=== PATIENT | male | born 1945 | race Caucasian/White ===

== ENCOUNTER 2019-12-03 00:04 | Outpatient (CLI) | payer MEDICARE, OTHER, SELFPAY ==
[2019-12-03 16:41] LABS: SARS-CoV-2 RNA PCR Negative
== END 2019-12-03 00:05 | disposition home or self-care (01) ==
LOC: ANHCOVIDDT 00:04
PROVIDERS: Visit Provider Surgery
DX: Z01.818 Encounter for other preprocedural examination (principal); Z11.59 Encounter for screening for other viral diseases
CPT/HCPCS: 87635; C9803; U0003

== ENCOUNTER 2019-12-03 14:20 | Outpatient (CLI) | payer MEDICARE, OTHER, SELFPAY ==
--- NOTE | 2019-12-03 14:30 | ECG_ITS ---
Measurements Intervals [place] Rate: 51 P: 8 MS: 186 QRS: -44 QRSD: 117 T: -2 QT: 440 QTc: 406 Interpretive Statements SINUS BRADYCARDIA LEFT AXIS DEVIATION INTRAVENTRICULAR CONDUCTION DELAY POOR R WAVE PROGRESSION, ANTERIOR LEADS BORDERLINE T WAVE ABNORMALITY- INFERIOR LEADS BORDERLINE ECG Electronically Signed On 12-03-2019 14:51:58 CDT by Kingston Martinez D.O.
== END 2019-12-03 14:21 | disposition home or self-care (01) ==
PROVIDERS: PCP Internal Medicine; Visit Provider Surgery
DX: Z01.818 Encounter for other preprocedural examination (principal); Z11.59 Encounter for screening for other viral diseases; I10 Essential (primary) hypertension; K40.90 Unilateral inguinal hernia, without obstruction or gangrene, not specified as recurrent
CPT/HCPCS: 87635; 93005; C9803; U0003

== ENCOUNTER 2019-12-05 01:47 | Day surgery (SDC) | payer MEDICARE, OTHER, SELFPAY ==
[2019-12-03 09:21] VITALS: BMI 25.8
--- NOTE | 2019-12-04 09:37 | PM.SD ---
Same Day Admit/Disch: HPI History of Present Illness Chief complaint: Right Inguinal Hernia Narrative: Shant Sprague is a 74 year old male who in early September noticed pain and a bulge in the right groin. It was particularly painful with pulling or twisting. He was seen in the office and found to have a reducible right inguinal hernia. He is taken to surgery now for repair. [facility] Past Medical History Medical History BPH w urinary obs/LUTS High cholesterol History of kidney stones HTN (hypertension) Surgical History Surgical History No pertinent past surgical history Social History Social History Smoking status: Never smoker Alcohol intake: never Substance use: never Gender identity (if verbalized by the patient): Male Same Day Admit/Disch: Med Pre-admit Medications Home Medications Medication Instructions Recorded Confirmed Type finasteride 5 mg tablet 5 mg PO DAILY 09/18/19 12/05/19 History minocycline 50 mg capsule 50 mg PO DAILY 09/18/19 12/05/19 History nebivolol 10 mg tablet 10 mg PO DAILY 09/18/19 12/05/19 History pravastatin 20 mg tablet 20 mg PO DAILY 09/18/19 12/05/19 History tamsulosin 0.4 mg capsule 0.4 mg PO DAILY 09/18/19 12/05/19 History Exam Const: General: comfortable, no acute distress, alert and awake HENMT: Head: normocephalic and atraumatic Mouth: Yes Normal oral and palatal mucosa present Eyes: Conjunctivae: conjunctivae normal Pupils: Equal, round and reactive pupils present EOM: EOMs intact bilaterally Neck: Neck: normal visual inspection, no lymphadenopathy and nontender Resp: Effort & Inspection: normal respiratory effort Auscultation: clear to auscultation bilaterally Cardio: Rate: regular rate Rhythm: regular rhythm Heart sounds: no gallops, no murmurs and no rubs GI: Inspection: non-distended GI Palp: Yes Soft to palpation, No Tenderness to palpation present (GI), No Hepatomegaly present and No Splenomegaly present : Penis: Yes normal penis Scrotum: scrotum normal and inguinal hernia on the right (Small right inguinal hernia, reducible) Testes: Testes normal Skin: Lesions: no lesions Rashes: no rashes Neuro: General: no focal motor deficits and CN's II-XI intact bilaterally Cranial nerves: Yes Equal, round and reactive pupils present, Yes Bilaterally intact EOM present, Yes facial symmetry and Yes Midline tongue present Speech: normal speech Motor exam (neuro): 5/5 motor strength present throughout and Motor abnormalities not present Extrem: General: no clubbing, cyanosis or edema and edema Psych: Affect: normal affect Thought process: Normal thought process present Insight: Good insight present (Psych) DS: Summary Time Spent with Patient Time attestation: Total time spent providing and/or coordinating discharge services: DS: Admitting Diagnosis Admitting Diagnosis Admitting Diagnosis: Essential (primary) hypertension DS: Discharge Diagnosis Discharge Diagnosis (1) Right inguinal hernia: Code(s): K40.90 - Unilateral inguinal hernia, without obstruction or gangrene, not specified as recurrent Status: Chronic Assessment and Plan: Plan to proceed with right inguinal hernia repair under local mac anesthesia as an outpatient. The procedure the risks the benefits have been discussed thoroughly with the patient. The use of mesh has been discussed. The usual length of recovery have been discussed. All questions were answered. He understands and agrees to go ahead. (2) BPH w urinary obs/LUTS: Code(s): N40.1 - Benign prostatic hyperplasia with lower urinary tract symptoms; N13.8 - Other obstructive and reflux uropathy Status: Chronic Assessment and Plan: Increases the risk of postoperative urinary retention. Continue home meds. (3) HTN (hypertension
--- NOTE | 2019-12-04 15:26 | WPDANESEPPF ---
Anes - Initial Pre Proc Eval Procedure: Operation Date: 12/05/19 07:30 Proposed Procedures p Right Inguinal Hernia Repair, Possible Mesh - Kyree Chawla MD Date/Time: 12/04/19 15:26 Surgeon: Kyree Chawla MD Pre Op Diagnosis: Right Inguinal Hernia Patient Data Age: 74 Gender: M Height: 1.68 m Weight: 72.57 kg Allergies Allergy/AdvReac Type Severity Reaction Status Date / Time No Known Allergies Allergy Unverified 12/03/19 09:10 Home Medications Medication Instructions Recorded Confirmed Type finasteride 5 mg tablet 5 mg PO DAILY 09/18/19 12/03/19 History minocycline 50 mg capsule 50 mg PO DAILY 09/18/19 12/03/19 History nebivolol 10 mg tablet 10 mg PO DAILY 09/18/19 12/03/19 History pravastatin 20 mg tablet 20 mg PO DAILY 09/18/19 12/03/19 History tamsulosin 0.4 mg capsule 0.4 mg PO DAILY 09/18/19 12/03/19 History ECG: Date of Service: 12/03/19 Procedure(s): CA 12 lead EKG Accession Number(s): [id number] cc: ~ Measurements Intervals [place] Rate: 51 P: 8 NE: 186 QRS: -44 QRSD: 117 T: -2 QT: 440 QTc: 406 Interpretive Statements SINUS BRADYCARDIA LEFT AXIS DEVIATION INTRAVENTRICULAR CONDUCTION DELAY POOR R WAVE PROGRESSION, ANTERIOR LEADS BORDERLINE T WAVE ABNORMALITY- INFERIOR LEADS BORDERLINE ECG Electronically Signed On 12-03-2019 14:51:58 CDT by Kingston Martinez D.O. Dictated By: Kingston Martinez DO 12/03/19 1501 Patient hx anesthesia problems: none Family hx anesthesia problems: none PMFSH Past Medical History Medical History BPH w urinary obs/LUTS High cholesterol History of kidney stones HTN (hypertension) Surgical History Surgical History No pertinent past surgical history Social History Social History Smoking status: Never smoker Alcohol intake: never Substance use: never Gender identity (if verbalized by the patient): Male Anes - Eval Final PreProcedure Day of Procedure 12/04/19 15:26 Patient weight: overweight Heart: regular rate and rhythm Lungs: clear to auscultation and normal air movement Airway: Mallampati scale class II Neurological: alert and oriented Last oral intake: >/= 8 hours ASA classification: II Emergent: no Anesthetic plan: proceed Anesthesia type and monitoring: general GIVS Informed Consent: The patient's anesthetic plan and its attendant risks and benefits were discussed with the patient/family/POA. Questions were solicited and answers provided to the satisfaction of the patient/family/POA.
[2019-12-05] VITALS (10 sets, daily range): BP systolic 143–161; BP diastolic 67–80; PULSE 53–85; RESP 16–18; TEMP 36.7; O2SAT 96–100
--- NOTE | 2019-12-05 06:38 | WPDHPUPDATE1 ---
History and Physical Update Update Date/Time: 12/05/19 06:38 History and Physical has been reviewed, including an updated exam of the patient. There are NO changes in the patient's condition. Risks, benefits, and alternatives have been discussed and questions answered. Patient agrees to proceed with procedure.
[2019-12-05] MEDS: LACTATED RINGERS 1,000 ML 30 ML IV CONT ×2 (07:00→09:00)
[2019-12-05] MEDS: ceFAZolin 2 GM/D5W 50 ML 2 GM/50 ML BAG IVPB (07:23)
--- NOTE | 2019-12-05 09:09 | P.OP_ITS ---
Procedure Note - Detailed Date of procedure: 12/05/19 Pre-op diagnosis: Right Inguinal Hernia Right inguinal hernia Post-op diagnosis: same (Indirect hernia) Procedure performed: Repair of right inguinal hernia with 6 cm Parietex hernia mesh system Description of procedure: The patient was taken to surgery and IV sedation was administered. The right groin and genitalia were prepped and draped. Proposed incision was marked on the skin. Local was infiltrated into the skin and the deeper subcutaneous tissues. Incision was made and deepened through the subcutaneous. Crossing veins were cauterized and divided. Dissection was carried through Celio's fascia down to the external oblique aponeurosis. The aponeurosis was exposed as was the external ring. Additional local anesthesia was infiltrated deep to the aponeurosis in the area of the spermatic cord and inguinal canal contents. The aponeurosis was opened laterally and extended medially through the external ring. The leaves of the aponeurosis were dissected free from the spermatic cord. The ileoinguinal nerve was carefully preserved throughout the dissection and was left attached to the spermatic cord. The cord was then mobilized medially on a [place] drain. The cord was dissected back to the internal ring. Dissection was then carried out in the anteromedial spermatic cord. The hernia sac was found and dissected free. The sac was then dissected back to a high dissection. It was dunked into the retroperitoneum. A 6 centimeter Parietex [place] was chosen. It was folded to form a plug. It was placed in the defect. The edges were sutured to the transversalis fascia with interrupted 3 0 Vicryl suture. The hernia defect was then partially closed with some additional 3 0 Vicryl suture. Some lipomatous tissue was debrided from the spermatic cord. This was discarded. Patch was then cut to the appropriate size and placed over the inguinal canal floor. The lateral leaves were passed beyond the cord. The cord and ileoinguinal nerve were then laid over the patch. The external oblique aponeurosis was closed with interrupted 3 0 Vicryl suture. Celio's fascia was closed with interrupted 3 0 Vicryl suture. The subcutaneous was closed with interrupted 4 0 Vicryl suture. Four 0 Vicryl subcuticular skin sutures were placed. The skin was closed finally with a running 4 0 Monocryl skin suture. The wound was dressed with Exofin surgical adhesive. The patient was awakened and taken to recovery in good condition. Sponge and needle counts were correct x2. Anesthesia: MAC and local (0.5% Marcaine with Exparel) Surgeon: Kyree Chawla MD Pharmacy Benefit Manager: Rach HERRERA Estimated blood loss (mL): 5 Drains: No Packing: No Pathology: none sent Complications: None Condition: stable Disposition: PACU Findings: Indirect inguinal hernia. No sliding hernia was noted.
--- NOTE | 2019-12-05 09:40 | SUR.PHASEII ---
0930; PT AWAKE AND ALERT. DENIES PAIN. UP TO RECLINER.
--- NOTE | 2019-12-05 09:48 | SUR.PHASEII ---
0945; PT'S RIDE UPDATED.
--- NOTE | 2019-12-05 10:23 | SUR.PHASEII ---
1020; PT WALKED TO BATHROOM. GAIT STEADY.
--- NOTE | 2019-12-05 10:51 | SUR.PHASEII ---
1050; PT UNABLE TO VOID. SITTING IN RECLINER. DRINKING WATER. DENIES PAIN.
--- NOTE | 2019-12-05 13:01 | SUR.PHASEII ---
1300; PT DRESSED. WAITING FOR RIDE.
== END 2019-12-05 13:25 | disposition home or self-care (01) ==
PROVIDERS: Visit Provider Surgery
PROC: (CPT 49650; principal; 2019-12-05 07:30)
DX: K40.90 Unilateral inguinal hernia, without obstruction or gangrene, not specified as recurrent (principal); I10 Essential (primary) hypertension; E78.00 Pure hypercholesterolemia, unspecified; N40.1 Benign prostatic hyperplasia with lower urinary tract symptoms; N13.8 Other obstructive and reflux uropathy
CPT/HCPCS: 49650; A9270; C1781; C9290; J0690; J2405; J2704; J3010; J7120

== ENCOUNTER 2020-01-14 00:29 | Outpatient (CLI) | payer MEDICARE, OTHER, SELFPAY ==
[2020-01-14 18:42] LABS: SARS-CoV-2 RNA PCR Negative
== END 2020-01-14 00:30 | disposition home or self-care (01) ==
LOC: ANHCOVIDDT 00:29
PROVIDERS: Visit Provider Surgery
DX: Z01.812 Encounter for preprocedural laboratory examination (principal); Z11.59 Encounter for screening for other viral diseases
CPT/HCPCS: 87635; C9803; U0003

== ENCOUNTER 2020-01-17 12:29 | Inpatient (IN) | payer MEDICARE, OTHER, SELFPAY ==
[2020-01-10 15:08] VITALS: BMI 26.2
[2020-01-16] VITALS (11 sets, daily range): BP systolic 131–184; BP diastolic 63–89; PULSE 59–70; RESP 12–18; TEMP 36.1–37.6; O2SAT 97–100; BMI 27.6
--- NOTE | 2020-01-16 10:23 | WPDHPUPDATE1 ---
History and Physical Update Update Date/Time: 01/16/20 10:23 History and Physical has been reviewed, including an updated exam of the patient. There are NO changes in the patient's condition. Risks, benefits, and alternatives have been discussed and questions answered. Patient agrees to proceed with procedure.
[2020-01-16] MEDS: LACTATED RINGERS 1,000 ML 30 ML IV CONT ×3 (11:00→15:07)
[2020-01-16] MEDS: ACETAMINOPHEN 500 MG TABLET 1000 MG PO (11:10)
[2020-01-16] MEDS: KETOROLAC 15 MG/ML VIAL (*BKC) IV PUSH (11:10)
--- NOTE | 2020-01-16 11:50 | WPDANESEPPF ---
Anes - Initial Pre Proc Eval Procedure: Operation Date: 01/16/20 12:30 Proposed Procedures p Repair of Recurrent Right Inguinal Hernia - Kyree Chawla MD Date/Time: 01/16/20 11:50 Surgeon: Kyree Chawla MD Pre Op Diagnosis: Recurrent Right Inguinal Hernia Patient Data Age: 74 Gender: M Height: 5 ft 6 in Weight: 74.3 kg Last Vital Signs Temp 37.6 C 01/16/20 11:00 Pulse 60 01/16/20 11:00 Resp 17 01/16/20 11:00 BP 184/74 H 01/16/20 11:00 Pulse Ox 100 01/16/20 11:00 Allergies Allergy/AdvReac Type Severity Reaction Status Date / Time No Known Allergies Allergy Verified 01/10/20 15:01 Home Medications Medication Instructions Recorded Confirmed Type finasteride 5 mg tablet 5 mg PO DAILY 09/18/19 01/10/20 History minocycline 50 mg capsule 50 mg PO DAILY 09/18/19 01/10/20 History nebivolol 10 mg tablet 10 mg PO DAILY 09/18/19 01/10/20 History pravastatin 20 mg tablet 20 mg PO DAILY 09/18/19 01/10/20 History tamsulosin 0.4 mg capsule 0.4 mg PO DAILY 09/18/19 01/10/20 History Patient hx anesthesia problems: none Family hx anesthesia problems: none PMFSH Past Medical History Medical History BPH w urinary obs/LUTS High cholesterol History of kidney stones HTN (hypertension) Surgical History Surgical History History of inguinal hernia repair repair of right inguinal hernia with 6cm Parietex hernia mesh system 12/05/2019 No pertinent past surgical history Social History Social History Smoking status: Never smoker Alcohol intake: never Substance use: never Living arrangements: alone Gender identity (if verbalized by the patient): Male Spiritual care concerns: No Anes - Eval Final PreProcedure Day of Procedure 01/16/20 11:50 Patient weight: overweight Heart: regular rate and rhythm Lungs: clear to auscultation Airway: Mallampati scale class II Neurological: alert and oriented Last oral intake: >/= 8 hours ASA classification: II Emergent: no Anesthetic plan: proceed Anesthesia type and monitoring: general GIVS and standard monitoring Informed Consent: The patient's anesthetic plan and its attendant risks and benefits were discussed with the patient/family/POA. Questions were solicited and answers provided to the satisfaction of the patient/family/POA.
[2020-01-16] MEDS: ceFAZolin 2 GM/D5W 50 ML 2 GM/50 ML BAG IVPB (12:25)
[2020-01-16] MEDS: TAMSULOSIN HCL 0.4 MG CAPSULE PO (16:35)
[2020-01-16] MEDS: FINASTERIDE 5 MG TABLET PO (16:36)
--- NOTE | 2020-01-16 18:40 | PM.PROC ---
Procedure Note - Detailed Date of procedure: 01/16/20 Pre-op diagnosis: Recurrent Right Inguinal Hernia Recurrent right inguinal hernia Post-op diagnosis: same Procedure performed: Repair recurrent right inguinal hernia with 8 cm Parietex hernia mesh system Description of procedure: Patient had his initial right inguinal hernia repair on 12/05/2019. This was an indirect hernia and a 6 cm Parietex [place] was used with mesh patch. The patient reported a lot of pain after surgery. At my initial postop visit it appeared he had a hematoma. Subsequent postop visit showed a recurrent reducible hernia. He is taken back to surgery now for repair. He was placed on the operating table and IV sedation was administered. He had some problems with coughing and eventually he was under general anesthesia with LMA. Prep and drape of the genitalia and right inguinal region was carried out. An elliptical incision around the old scar was marked on the skin. Local anesthetic was infiltrated into the skin and subcutaneous. The old scar was excised. Dissection was carried out through the subcutaneous and down to the hernia. The hernia was quite large and the sac appeared very thickened and chronic considering it had only been there for 6 weeks. Tissue planes were obscured both from the recent surgery and the large recurrent hernia. I actually entered the hernia sac initially to assist in defining the anatomy. There was a lot of bowel in the hernia sac but no sliding hernia. I reduced the bowel and placed a sponge in the hernia defect keep keep it in place. From there a very lengthy dissection was carried out. Tissue planes were obscured due to the recent surgery and scar tissue as well as a large recurrent hernia. Even with a finger in the hernia defect, it was very difficult to determine the hernia sac from surrounding tissues and the spermatic cord. I was very diligent about trying to avoid any injury to the spermatic cord or cord vessels. I a eventually extended the incision laterally so that I could see more of the external oblique aponeurosis in an un- dissected tissue plane. With the external oblique aponeurosis exposed, I opened the aponeurosis and extended this incision to what appeared to be the external opening. I was not able to identify the ileoinguinal nerve. I then freed the leaves of the aponeurosis from the hernia sac and cord. There was a lot of thickening of the external oblique and scar tissue at the exit of the hernia defect in the external ring. I think there was some of the mesh patch in this scar tissue although I never could really find the patch. Dissection was continued trying to be as careful as possible. I found the spermatic cord more medially and carefully dissected this from the hernia sac. Problems were encountered though when I tried to dissect the sac near its neck. The spermatic cord here was caught up in very tenacious adhesions. Despite my efforts, there was bleeding from cord vessels as I freed the hernia sac from the cord in this area. This required cautery and eventually a suture ligature of 3 0 Vicryl to control this bleeding. Dissection continued and I was able to dissect out the hernia sac circumferentially. This appeared to be another indirect hernia. I still was not able to find the previously placed hernia plug. I dissected the remainder of the sac from surrounding structures. I then placed a pursestring suture about an inch and a half from the neck of the hernia. This went around the hernia sac. I tied down the pursestring suture and then amputated the sac more distally. The hernia sac was sent as a specimen I dunked the remnant of the hernia defect into the retroperitoneum and then placed a sponge to keep it in this position. Placing a finger into the retroperitoneum I was able to feel the previously placed plug more medial to the larger recurrent defect. It was very solid in this location and I thought it better to leave it
[2020-01-16] MEDS: SENNA/DOCUSATE SODIUM TABLET 2 TAB PO (21:09)
[2020-01-16] MEDS: FAMOTIDINE 20 MG TABLET PO (21:09)
[2020-01-17] VITALS (8 sets, daily range): BP systolic 142–166; BP diastolic 65–72; PULSE 64–70; RESP 12–16; TEMP 36.3–37.2; O2SAT 94–100
[2020-01-17 06:27] LABS: Hematocrit 36.1 % (42.0-52.0); Immature Platelet Fraction Pct 4.4 % (0.9-11.2); Mean Corpuscular HGB Conc 33.2 g/dl (32-36); Mean Corpuscular Hemoglobin 30.4 pg (26-34); Mean Corpuscular Volume 91.4 fl (80-100); Mean Platelet Volume 11.5 fl (7.4-10.4); Platelet Count Result 148 k/mm3 (150-375); Red Blood Count 3.95 M/mm3 (4.6-6.20); Red Cell Distribution Width 11.8 % (11.5-14.5); White Blood Count 8.8 K/mm3 (4.5-10.0)
[2020-01-17 06:34] LABS: Blood Urea Nitrogen 19 mg/dL (9-20); Calcium 8.3 mg/dL (8.4-10.2); Carbon Dioxide 29 mmol/L (22-30); Chloride 100 mmol/L (98-107); Estimated CRCL calculation 58 ml/min; Estimated Glomerular Filt Rate > 60; Glucose 96 mg/dL (75-110); Potassium 4.2 mmol/L (3.4-5.0); Sodium 132 mmol/L (137-145)
[2020-01-17] MEDS: NEBIVOLOL HCL 5 MG TABLET 10 MG PO (08:35)
[2020-01-17] MEDS: MINOCYCLINE HCL 50 MG CAPSULE PO (08:35)
[2020-01-17] MEDS: polyethylene glycoL 3350 17 GM POWD.PACK PO (08:35)
[2020-01-17] MEDS: PRAVASTATIN SODIUM 20 MG TABLET PO (08:35)
[2020-01-17] MEDS: TAMSULOSIN HCL 0.4 MG CAPSULE PO (08:35)
[2020-01-17] MEDS: FAMOTIDINE 20 MG TABLET PO ×2 (08:35→21:42)
[2020-01-17] MEDS: ENOXAPARIN 40 MG/0.4 ML SYRINGE SUB-Q (09:02)
--- NOTE | 2020-01-17 10:09 | PM.PNGS ---
Progress Note: A&P Assessment and Plan (1) Recurrent inguinal hernia of right side without obstruction or gangrene: Code(s): K40.91 - Unilateral inguinal hernia, without obstruction or gangrene, recurrent Status: Acute Assessment and Plan: POD1 and doing well. Continue to monitor BLAIRE drain to suction. Advance to a regular diet. Increase activity and encouraged ambulating in the halls. If he continues to progress well, we will possibly discharge the patient tomorrow. Will plan on discharging the patient with the BLAIRE drain, therefore I will ask the nurse today to educate the patient on BLAIRE drain care at home. (2) HTN (hypertension): Qualifiers: Hypertension type: essential hypertension Qualified Code(s): I10 - Essential (primary) hypertension Code(s): I10 - Essential (primary) hypertension Status: Chronic Assessment and Plan: BP stable on home medication. Continue to monitor. (3) BPH w urinary obs/LUTS: Code(s): N40.1 - Benign prostatic hyperplasia with lower urinary tract symptoms; N13.8 - Other obstructive and reflux uropathy Status: Chronic Assessment and Plan: Urinating without complaints. Continue home medications. Additional Plan Discussed plan of care with Dr. Chawla today. Subjective Subjective Date/Time Seen: 01/17/20 09:40 Post Op day: 1 Patient reports: no new complaints, feels better, tolerating a regular diet, no flatus and no bowel movement Interval history: Patient reports feeling well this morning with minimal incisional right groin pain. He reports tolerating a diet this morning without any nausea, vomiting, or bloating. No acute events overnight or new complaints at this time. Review of Systems Review of Systems: All systems reviewed & are unremarkable except as noted in HPI and below Constitutional: Constitutional: Reports no additional constitutional complaints, Denies chills and Denies fever(s) Cardiovascular: Cardiovascular: Reports no additional cardiovascular complaints, Denies chest pain, Denies leg edema and Denies lightheadedness Respiratory: Respiratory: Reports no additional respiratory complaints, Denies chest congestion, Denies cough, Denies dyspnea and Denies dyspnea on exertion Gastrointestinal: Gastrointestinal: Reports as per HPI and Reports no additional gastrointestinal complaints Genitourinary: Genitourinary: Reports no additional male genitourinary complaints, Denies hematuria and Denies dysuria Exam Const: General: comfortable, no acute distress, alert and awake Orientation/consciousness: patient oriented x3 Resp: Effort & Inspection: normal respiratory effort and able to speak in complete sentences Auscultation: clear to auscultation bilaterally Cardio: Rate: regular rate Rhythm: regular rhythm GI: Inspection: non-distended and incision (Right groin incision clean, dry, and intact.) GI Palp: Yes Soft to palpation, Yes Tenderness to palpation present (GI) (Incisional tenderness and near right lower quadrant BLAIRE drain), No Guarding due to palpation present (GI), No Hernia present and No Rebound tenderness present Auscultation: normal bowel sounds Other: RLQ BLAIRE drain with serosanguineous drainage. Skin: General skin exam: normal color Neuro: General: moves all extremities Cranial nerves: Yes CN's II-XII intact bilaterally Speech: normal speech Extrem: General: no calf tenderness and no edema Psych: Mental Status: mental status grossly normal Attitude: cooperative Thought process: Normal thought process present Thought content: Yes Normal thought content present Objective Data Vital Signs Vital Signs: Vital Signs - 24 hr 01/16/20 11:00 01/16/20 14:00 01/16/20 14:50 Temperature 99.6 F 96.9 F L 97.3 F L Pulse Rate 60 60 70 Respiratory Rate 17 17 12 Blood Pressure 184/74 H 134/63 141/89 H Pulse Oximetry 100 100 100 01/16/20 14:55 01/16/20 15:05 01/16/20 15:20 Temperature Pulse Rate 60 61 65 Res
--- NOTE | 2020-01-17 10:13 | WPDANESPN ---
Anes - Prog Note Post-Op Date/Time: 01/17/20 10:13 Cardiovascular status: normal Respiratory status: normal Airway patency: baseline Mental status: baseline Post-Op hydration status: normal Vital Signs: Last Vital Signs Temp 36.8 C 01/17/20 10:06 Pulse 64 01/17/20 10:06 Resp 12 01/17/20 10:06 BP 166/71 H 01/17/20 10:06 Pulse Ox 100 01/17/20 10:06 I/O: Intake & Output 01/16/20 01/17/20 01/17/20 23:59 07:59 15:59 Intake Total 240 400 240 Output Total 255 870 Balance -15 -470 240 Laboratory Tests 01/17/20 05:51 01/17/20 05:51 01/17/20 01/17/20 05:51 05:51 WBC 8.8 RBC 3.95 L Hgb 12.0 L Hct 36.1 L MCV 91.4 MCH 30.4 MCHC 33.2 RDW 11.8 Plt Count 148 L MPV 11.5 H % Immature Plt Fraction 4.4 Sodium 132 L Potassium 4.2 Chloride 100 Carbon Dioxide 29 BUN 19 Creatinine 0.90 Estim Creat Clear Calc 58 Estimated GFR > 60 Glucose 96 Calcium 8.3 L Post-procedural complaints: none Patient Feedback: Patient satisfied with anesthetic care.
[2020-01-17] MEDS: SENNA/DOCUSATE SODIUM TABLET 2 TAB PO (20:35)
[2020-01-18 00:48] VITALS: BP 148/75; PULSE 64; RESP 12; TEMP 36.7; O2SAT 99
[2020-01-18 05:27] VITALS: BP 150/85; PULSE 58; RESP 12; TEMP 36.8; O2SAT 99
--- NOTE | 2020-01-18 07:06 | P.DS_ITS ---
DS: Admitting Diagnosis Admitting Diagnosis Admitting Diagnosis: Recurrent right inguinal hernia DS: Discharge Diagnosis Discharge Diagnosis (1) Recurrent inguinal hernia of right side without obstruction or gangrene: Code(s): K40.91 - Unilateral inguinal hernia, without obstruction or gangrene, recurrent Status: Acute Assessment and Plan: doing well status post difficult repair on January 16, 2020. Patient is comfortable on oral analgesics. He can go home today with his subcutaneous BLAIRE drain in place. I will see him in the office in 4 days on January 22, 2020. He has pain medication at home already. (2) BPH w urinary obs/LUTS: Code(s): N40.1 - Benign prostatic hyperplasia with lower urinary tract symptoms; N13.8 - Other obstructive and reflux uropathy Status: Chronic Assessment and Plan: Voiding without difficulty. (3) HTN (hypertension): Qualifiers: Hypertension type: essential hypertension Qualified Code(s): I10 - Essential (primary) hypertension Code(s): I10 - Essential (primary) hypertension Status: Chronic Assessment and Plan: Stable on home meds. DS: Summary Time Spent with Patient Time attestation: Total time spent providing and/or coordinating discharge services: Exam : Male General Exam: No hernia ( Right inguinal incision is healing well. Serosanguineous fluid in BLAIRE ) and Yes tenderness Penis: Yes normal penis Scrotum: scrotum normal Testes: Testes normal DS: Data Data Completed and Pending Pending studies at discharge: Pending at discharge 01/16/20 13:48 Surgical [PTH] Routine Discharge Plan Discharge Attending physician on discharge: Kyree Williamson Discharging Clinician: Kyree Williamson Anticipated Discharge Date/Time: 01/18/20 07:10 Patient Disposition: Home, Self-Care Activity: may shower, no straining and as tolerated Diet: regular Wound Care Instructions: keep dressing dry and remove dressing to shower Discharge Instructions: * Ambulate 3-4 x per day and as tolerated. * No lifting over 15-20lbs. * May bathe or shower. * Stairs are OK. * May drive a car in 3 days. * Remove any dressings before shower and replace after. * Empty BLAIRE drain at least daily and record output in mL. Keep a record of 24 hour daily drain outputs and bring this record to office visit on Tuesday. Patient Instructions: Antibiotic Form Stand Alone Forms: General Discharge Information Follow-up/Referrals: Kyree Williamson MD [Physician] - 01/22/20 ( call To schedule appointment with Dr. williamson for TuesdayJanuary 21.) Discharge Medications: Continued Bystolic 10 mg tablet 10 mg PO DAILY RF: 0 pravastatin 20 mg tablet 20 mg PO DAILY RF: 0 tamsulosin 0.4 mg capsule 0.4 mg PO DAILY RF: 0 finasteride 5 mg tablet 5 mg PO DAILY RF: 0 minocycline 50 mg capsule 50 mg PO DAILY RF: 0 Date of admission: 01/17/20 12:29 Admitting Provider: Kyree Williamson Attending physician on admission: Kyree Williamson
[2020-01-18 07:58] VITALS: PULSE 58; RESP 12; O2SAT 99
[2020-01-18] MEDS: NEBIVOLOL HCL 5 MG TABLET 10 MG PO (08:47)
[2020-01-18] MEDS: ENOXAPARIN 40 MG/0.4 ML SYRINGE SUB-Q (08:47)
[2020-01-18] MEDS: polyethylene glycoL 3350 17 GM POWD.PACK PO (08:47)
[2020-01-18] MEDS: PRAVASTATIN SODIUM 20 MG TABLET PO (08:48)
[2020-01-18] MEDS: TAMSULOSIN HCL 0.4 MG CAPSULE PO (08:48)
[2020-01-18] MEDS: MINOCYCLINE HCL 50 MG CAPSULE PO (08:48)
[2020-01-18] MEDS: FAMOTIDINE 20 MG TABLET PO (08:49)
[2020-01-18 10:00] VITALS: BP 130/67; PULSE 60; RESP 16; TEMP 36.9; O2SAT 99
== END 2020-01-18 11:01 | disposition home or self-care (01) | DRG 351 ==
LOC: ANHSURGERY 12:35 → ANH2MED 01-18 07:12
PROVIDERS: Admitting Provider Surgery; Visit Provider Surgery
PROC: 0YU50JZ Supplement Right Inguinal Region with Synthetic Substitute, Open Approach (ICD-10-PCS; principal; 2020-01-16 12:30)
DX: K40.91 Unilateral inguinal hernia, without obstruction or gangrene, recurrent (principal); N13.8 Other obstructive and reflux uropathy; N40.1 Benign prostatic hyperplasia with lower urinary tract symptoms; E78.00 Pure hypercholesterolemia, unspecified; I10 Essential (primary) hypertension; Z87.442 Personal history of urinary calculi
CPT/HCPCS: 36415; 80048; 85027; 85055; 87635; 88302; A9270; C1781; C9290; C9803; J0330; J0690; J1650; J1885; J2405; J2704; J3010; J7120; U0003